=== PATIENT | male | born 1970 | race Two or more races ===

== ENCOUNTER → 2019-01-30 | Outpatient (CLI) | payer OTHER ==
--- NOTE | 2019-01-30 15:59 | CARD ---
MR#: [id number] Date of Study: 01/30/2019 Ordering Physician: CHRISTY MATTA, Referring Physician: Lee CHOWDARY: Jackie Saldaña RDCS APPROVED REPORT INDICATION Chest Pain Reason : Patient complained of pain PROCEDURE The patient underwent an Exercise Stress Test using the Campbell Protocol. Blood pressure, heart rate, a nd EKG were monitored. An Echocardiogram was performed by quick service technician in four stages in quad fashion. At peak stress four se lected images were obtained and placed side by side with resting images for comparison. STRESS ECHO FINDINGS The resting Echocardiogram showed normal left ventricular systolic contractility with an estimated Ej ection Fraction of about 60 %. The Resting Echocardiogram showed normal augmentation of myocardial wall segments using a 16 segment model. The Stress Echocardiogram showed normal augmentation of myocardial wall segments using a 16 segment m chyna. The Stress Echocardiogram left ventricular systolic contractility has an estimated Ejection Fraction of about 75%. Test Type: Exercise Stress Nurse/Tech: Michelle Paulino RN Test Indications: Chest Pain Cardiac History and Allergies: No known cardiac Medications: see EMR Medical History: see EMR Resting ECG: SR Resting Heart Rate: 77 bpm Resting Blood Pressure: 133/74mmHg Pretest Chest Pain: No chest pain Nurse/Tech Notes S1,S2 and lungs clear to auscultation. Stress Symptoms Fatigue POST EXERCISE Reason for Termination: Reached target heart rate, Fatigue Target HR: Yes Max HR: 179 bpm 103% of Maximum Predicted HR: 174 bpm Exercise duration: 9:29 min:sec, 4 Stage Exercise capacity: 10.1METs Max Blood Pressure: 159/61mmHg Blood Pressure response to exercise: Normal blood pressure response during stress. Heart Rate response to exercise: WNL Chest Pain: No. Arrhythmia: No. ST Change: No. INTERPRETATION Stress EKG Conclusion: Baseline EKG showed sinus rhythm. No ischemic changes at peak stress. No arr hythmias. Preliminary Notification Critical Value: No <Conclusion> Treadmill exercise stress echocardiogram did not show any evidence of ischemia or infarct. Normal left ventricle systolic function with ejection fraction estimated at 60%. Patient had good activity tolerance. Low risk for cardiac events. Signed by : Christy Matta, Electronically Approved : 01/30/2019 15:59:33
== END | disposition home or self-care (01) ==
LOC: ECHO 14:23
PROVIDERS: ATTEND Internal Medicine Cardiovascular Disease
DX: R53.83 Other fatigue (principal); R07.9 Chest pain, unspecified
CPT/HCPCS: 93017; 93350